=== PATIENT | female | born 1990 | race Caucasian/White ===

== ENCOUNTER 2021-06-27 03:42 | Emergency (ER) | payer OTHER ==
[~2021-06-27 03:42] MED LIST: MEDROL4 MG PO; MONISTAT 7 CREA45 GM PV
[2021-06-27] MEDS ORDERED: HYDROCODONE-AC1 EAC1 PO (07:51)
== END 2021-06-27 08:04 | disposition home or self-care (01) ==
LOC: ER1 03:42
DX: S68.125A Partial traumatic metacarpophalangeal amputation of left ring finger, initial encounter (principal); S62.635A Displaced fracture of distal phalanx of left ring finger, initial encounter for closed fracture; F17.290 Nicotine dependence, other tobacco product, uncomplicated; Z23 Encounter for immunization; Z88.0 Allergy status to penicillin; W54.0XXA Bitten by dog, initial encounter
CPT/HCPCS: 12001; 73130; 90715; 96372; 99283; J0690

== ENCOUNTER → 2021-10-26 | Outpatient (CLI) | payer OTHER ==
[~2021-10-26] MED LIST changes: +HYDROCODONE-AC1 EAC1 PO
== END ==
LOC: KOH-I 10:05
DX: R05.9 Cough, unspecified (principal); M54.2 Cervicalgia; M54.6 Pain in thoracic spine; M54.50 Low back pain, unspecified; M41.86 Other forms of scoliosis, lumbar region
CPT/HCPCS: 71046; 72040; 72070; 72100